=== PATIENT | male | born 1970 | race African-American/Black ===

== ENCOUNTER 2022-11-05 23:11 | Inpatient (IN) | payer OTHER ==
[~2022-11-05] VITALS: Ht 190.5 cm; Wt 102.1 kg
[2022-11-05 23:41] LABS: HEMATOCRIT. 41.5 % (42.0-52.0); HEMOGLOBIN. 14.4 g/dL (14.0-18.0); MEAN CORPUSCULAR HEMOGLOBIN 30.1 pg (28.0-32.0); MEAN CORPUSCULAR VOLUME 86.6 fL (80.0-94.0); MEAN PLATELET VOLUME 9.1 fl (7.4-10.4); PLATELET 237 x1000/uL (130-400); RED BLOOD CELL COUNT 4.79 mill/uL (4.7-6.1); RED CELL DISTRIBUTION WIDTH 14.3 % (11.6-14.6)
[2022-11-05 23:50] LABS: CHLORIDE 105 mEq/L (98-107)
[2022-11-06] MEDS ORDERED: KETOROLAC 30MG/ML VIAL IV STA (00:26)
[2022-11-06] MEDS ORDERED: SODIUM CHLORIDE 0.9% 1,000 ML IV ONE (00:30)
[2022-11-06 00:46] LABS: CLARITY URINE CLEAR (CLEAR); COLOR URINE YELLOW (YELLOW); KETONES URINE NEGATIVE (NEGATIVE); LEUKOCYTE ESTERASE URINE TRACE (NEGATIVE); NITRITE URINE NEGATIVE (NEGATIVE); OCCULT BLOOD URINE NEGATIVE (NEGATIVE); PH URINE 7.5 (4.5-8.0); PROTEIN URINE NEGATIVE (NEGATIVE)
[2022-11-06] MEDS ORDERED: KETOROLAC 30MG/ML VIAL IV NR (04:30)
[2022-11-06 05:05] LABS: PLATELET ESTIMATE NORMAL
[2022-11-06] MEDS ORDERED: TAMSULOSIN HCL 0.4MG SR CAPSULE PO ONE (05:15)
[2022-11-06] MEDS ORDERED: TAMSULOSIN HCL 0.4MG SR CAPSULE PO NR (05:45)
[2022-11-06 08:00] VITALS: BP 136/81
[2022-11-06] MEDS ORDERED: ONDANSETRON HCL 4MG/2ML INJ IV PRN (10:30)
[2022-11-06] MEDS ORDERED: MAGNESIUM/ALUMINUM HYDROXIDE/SIMETHICONE 30ML UDC PO PRN (10:30)
[2022-11-06] MEDS ORDERED: SODIUM CHLORIDE 0.9% 1,000 ML IV SCH (10:30)
[2022-11-06] MEDS ORDERED: ACETAMINOPHEN 325MG TABLET PO PRN ×2 (10:30)
[2022-11-06] MEDS ORDERED: IBUPROFEN 600MG TABLET PO PRN (10:30)
[2022-11-06] MEDS ORDERED: MORPHINE SULFATE 4 MG/ML CPJ (NOT FOR IM USE) IV PRN (10:30)
[2022-11-06] MEDS ORDERED: CLONIDINE 0.1MG TABLET PO PRN (10:30)
[2022-11-06] MEDS ORDERED: NALOXONE HCL 0.4MG/ML VIAL IV PRN (10:30)
[2022-11-06 12:00] VITALS: BP 119/62
[2022-11-06 15:32] VITALS: BP 119/62
[2022-11-07] MEDS ORDERED: TAMSULOSIN HCL 0.4MG SR CAPSULE PO SCH (09:00)
== END 2022-11-06 15:52 | disposition home or self-care (01) | DRG 694 ==
LOC: ER 23:11 → 6WST 11-06 05:15 → EDBEDREQ 11-06 05:46 → EDBEDREQTM 11-06 05:46 → 6EST 11-06 09:30
PROVIDERS: ADMIT Internal Medicine; ATTEND Internal Medicine
DX: N13.2 Hydronephrosis with renal and ureteral calculous obstruction (principal); N17.9 Acute kidney failure, unspecified; K80.20 Calculus of gallbladder without cholecystitis without obstruction; R39.11 Hesitancy of micturition; N28.1 Cyst of kidney, acquired
CPT/HCPCS: 36415; 74176; 80053; 81003; 83605; 85025; 99285; J1885; J7030

== ENCOUNTER 2024-10-29 06:44 | Emergency (ER) | payer OTHER ==
[~2024-10-29] VITALS: Ht 190.5 cm; Wt 102.0 kg
[2024-10-29 06:50] VITALS: O2SAT 99
[2024-10-29 07:42] LABS: BASOPHILS % 0.2 % (0.0-2.0); EOSINOPHILS % 0.2 % (0.0-5.0); HEMATOCRIT. 40.7 % (42.0-52.0); HEMOGLOBIN. 13.7 g/dL (14.0-18.0); LYMPHOCYTES % 10.1 % (20.0-50.0); MEAN CORPUSCULAR HEMOGLOBIN 28.9 pg (28.0-32.0); MEAN CORPUSCULAR HGB CONC 33.7 g/dL (31.0-37.0); MEAN CORPUSCULAR VOLUME 85.7 fL (80.0-94.0); MONOCYTES % 5.5 % (2.0-8.0); PLATELET 192 x1000/uL (130-400); RED BLOOD CELL COUNT 4.75 mill/uL (4.7-6.1); RED CELL DISTRIBUTION WIDTH 14.6 % (11.6-14.6); WHITE BLOOD COUNT 7.4 x1000/uL (4.5-11.0)
[2024-10-29 07:46] LABS: CLARITY URINE CLEAR (CLEAR); COLOR URINE YELLOW (YELLOW); GLUCOSE URINE NEGATIVE (NEGATIVE); KETONES URINE NEGATIVE (NEGATIVE); LEUKOCYTE ESTERASE URINE TRACE (NEGATIVE); NITRITE URINE NEGATIVE (NEGATIVE); OCCULT BLOOD URINE NEGATIVE (NEGATIVE); PROTEIN URINE NEGATIVE (NEGATIVE); SPECIFIC GRAVITY URINE 1.016 (1.005-1.030); UROBILINOGEN URINE 0.2 E.U./dL (0.2-1.0)
[2024-10-29 07:51] LABS: POTASSIUM 3.8 mEq/L (3.5-5.1)
[2024-10-29 07:52] LABS: CALCIUM 9.3 mg/dL (8.7-10.4)
[2024-10-29 07:57] LABS: CREATININE 1.6 mg/dL (0.6-1.3)
[2024-10-29 08:19] LABS: BACTERIA URINE FEW; RBC URINE NONE SEEN /hpf (0-2); SQUAMOUS EPITHELIAL CELL URINE NONE SEEN /lpf (RARE/1+); WBC URINE 0-2 /hpf (0-2); YEAST URINE NONE SEEN
[2024-10-29] MEDS: LACTATED RINGERS 1,000 ML IV SCH (08:49)
[2024-10-29] MEDS: ONDANSETRON HCL 4MG/2ML INJ IV ONE (08:49)
[2024-10-29] MEDS: KETOROLAC 15MG/ML VIAL IV ONE (08:49)
[2024-10-29 09:02] LABS: ALANINE AMINOTRANSFERASE 20 IU/L (10-49); ALBUMIN 4.4 g/dL (3.2-4.8); ASPARTATE AMINOTRANSFERASE 32 IU/L (<34); BILIRUBIN DIRECT 0.2 mg/dL (<=3.0); BILIRUBIN TOTAL 0.6 mg/dL (0.1-1.0)
[2024-10-29] MEDS ORDERED: KETO10TA2 MT (09:24)
[2024-10-29] MEDS ORDERED: ONDA-239 PO (09:24)
[2024-10-29 09:50] VITALS: BP 125/57; PULSE 52; RESP 16; TEMP 36.7; O2SAT 99
== END 2024-10-29 09:52 | disposition home or self-care (01) ==
LOC: ER 06:44
DX: N13.2 Hydronephrosis with renal and ureteral calculous obstruction (principal); Z79.899 Other long term (current) drug therapy
CPT/HCPCS: 80076; 80048; 81003; 83690; 85025; 36415; 74176; 96361; 96374; 96375; 99285; J1885; J2405; Z7610 ×3; A4606